=== PATIENT | male | born 1965 | race African-American/Black ===

== ENCOUNTER 2017-10-05 18:31 | Inpatient (IN) | payer OTHER ==
[~2017-10-05] VITALS: Ht 177.8 cm; Wt 84.9 kg
[2017-10-05 19:07] VITALS: Ht 177.8 cm; Wt 84.9 kg
[2017-10-05 19:19] LABS: BASOPHIL % 0.4 % (0-2)
[2017-10-05 19:26] LABS: PLATELET COUNT 265 x10^3mcL (130-400)
[2017-10-05 19:34] LABS: RED CELL DISTRIBUTION WIDTH 15.1 % (11.5-14.5)
[2017-10-05 19:45] LABS: ALBUMIN 3.6 g/dL (3.4-5.0); BILIRUBIN TOTAL 0.7 mg/dL (0.20-1.00); CALCIUM 8.9 mg/dL (8.5-10.1); CARBON DIOXIDE 26.1 mmol/L (21-32)
[2017-10-05 19:52] LABS: CREATININE SERUM 5.9 mg/dL (0.7-1.3)
[2017-10-05] MEDS ORDERED: METFORMIN HYDR500 M1 PO (21:03)
[2017-10-05] MEDS ORDERED: COLACE100 MG PO (21:04)
[2017-10-05] MEDS ORDERED: DOXYCYCLINE HY100 MG PO (21:04)
[2017-10-05] MEDS ORDERED: ZESTRIL20 MG PO (21:04)
[2017-10-05] MEDS ORDERED: LANTUS SOLOS100 U/M1 SQ (21:05)
[2017-10-05] MEDS ORDERED: PRO30 PO (21:05)
[2017-10-05 21:44] LABS: CHOLESTEROL/HDL RATIO 4.2; MAGNESIUM 2.6 mg/dL (1.8-2.4); PHOSPHOROUS 6.5 mg/dL (2.5-4.9); T3 TOTAL 0.97 ng/mL
[2017-10-05 22:27] VITALS: BP 104/72
[2017-10-05 23:24] LABS: FREE T4 1.31 ng/dL (0.76-1.46); FREE THYROXINE INDEX 3.2 ug/dL (1.4-4.5); T4(THYROXINE) 8.6 ug/dL (4.7-13.3)
[2017-10-06 04:49] VITALS: BP 135/72
[2017-10-06 07:28] LABS: CALCIUM 8.3 mg/dL (8.5-10.1); CARBON DIOXIDE 26.1 mmol/L (21-32); CREATININE SERUM 3.5 mg/dL (0.7-1.3); MAGNESIUM 2.3 mg/dL (1.8-2.4); PHOSPHOROUS 3.6 mg/dL (2.5-4.9); POTASSIUM SERUM 4.2 mmol/L (3.5-5.1)
[2017-10-06 08:00] VITALS: BP 126/70
[2017-10-06 08:23] LABS: UA SPECIFIC GRAVITY >=1.030 (1.005-1.035); microscopic required? YES; urine erythrocyte NEGATIVE (NEGATIVE)
[2017-10-06 08:39] LABS: BASOPHIL % 0.3 % (0-2); PLATELET COUNT 246 x10^3mcL (130-400)
[2017-10-06 08:40] LABS: AMPHETAMINE QUAL UR POSITIVE (See below)
[2017-10-06 08:40] LABS: RED CELL DISTRIBUTION WIDTH 14.6 % (11.5-14.5)
[2017-10-06 08:49] VITALS: BP 129/78
[2017-10-06 13:52] VITALS: BP 111/70
[2017-10-06 16:51] VITALS: BP 105/56
[2017-10-06 20:51] VITALS: BP 118/73
[2017-10-07 05:38] VITALS: BP 138/81
[2017-10-07 06:25] LABS: BASOPHIL % 0.4 % (0-2); PLATELET COUNT 240 x10^3mcL (130-400)
[2017-10-07 06:26] LABS: RED CELL DISTRIBUTION WIDTH 14.6 % (11.5-14.5)
[2017-10-07 06:39] LABS: CALCIUM 8.3 mg/dL (8.5-10.1); CARBON DIOXIDE 25.8 mmol/L (21-32); CREATININE SERUM 1.5 mg/dL (0.7-1.3); PHOSPHOROUS 2.5 mg/dL (2.5-4.9); POTASSIUM SERUM 4.4 mmol/L (3.5-5.1)
[2017-10-07 09:17] VITALS: BP 118/64
[2017-10-07 13:55] VITALS: BP 128/81
[2017-10-07 17:10] VITALS: BP 120/72
[2017-10-07 17:16] VITALS: BP 120/72
[2017-10-07 20:31] VITALS: BP 137/83
[2017-10-08 05:15] VITALS: BP 144/78
[2017-10-08 06:52] LABS: BASOPHIL % 0.5 % (0-2); PLATELET COUNT 230 x10^3mcL (130-400); RED CELL DISTRIBUTION WIDTH 14.4 % (11.5-14.5)
[2017-10-08 07:08] LABS: CALCIUM 8.5 mg/dL (8.5-10.1); CARBON DIOXIDE 25.8 mmol/L (21-32); CHLORIDE SERUM 105 mmol/L (98-107); CREATININE SERUM 1.1 mg/dL (0.7-1.3); GFR1 > 60 mL/min; GLUCOSE SERUM 145 mg/dL (74-106); MAGNESIUM 1.5 mg/dL (1.8-2.4); PHOSPHOROUS 2.7 mg/dL (2.5-4.9); POTASSIUM SERUM 4.1 mmol/L (3.5-5.1); SODIUM SERUM 137 mmol/L (136-145)
[2017-10-08 10:15] VITALS: BP 125/71
[2017-10-08 11:41] VITALS: BP 125/71
[2017-10-08 13:23] VITALS: BP 122/75
[2017-10-08 18:15] VITALS: BP 131/77
== END 2017-10-08 20:15 | disposition home or self-care (01) | DRG 241 ==
LOC: ED 18:31 → MU 20:19 → DU 20:19 → MU 22:26 → DU 22:31
PROVIDERS: Emergency Medicine; Internal Medicine; Internal Medicine Gastroenterology
PROC: 0DB68ZX Excision of Stomach, Via Natural or Artificial Opening Endoscopic, Diagnostic (ICD-10-PCS; principal; 2017-10-08 09:30)
DX: K29.71 Gastritis, unspecified, with bleeding (principal); N17.0 Acute kidney failure with tubular necrosis; E11.65 Type 2 diabetes mellitus with hyperglycemia; E83.39 Other disorders of phosphorus metabolism; E83.41 Hypermagnesemia; F15.10 Other stimulant abuse, uncomplicated; Z60.2 Problems related to living alone; E86.0 Dehydration; E87.1 Hypo-osmolality and hyponatremia; E78.5 Hyperlipidemia, unspecified; F17.210 Nicotine dependence, cigarettes, uncomplicated; Z89.422 Acquired absence of other left toe(s); Z79.84 Long term (current) use of oral hypoglycemic drugs; Z83.3 Family history of diabetes mellitus; Z71.51 Drug abuse counseling and surveillance of drug abuser
CPT/HCPCS: 43235; 82962; 84439; C9113; G0480; J1200; J1610; J1815; J2250; J2310; J2405; J2765; J3010; J3490; J7030; Q0092

== ENCOUNTER 2020-03-22 20:07 | Emergency (ER) | payer OTHER, SELFPAY ==
[~2020-03-22] VITALS: Ht 177.8 cm; Wt 81.6 kg
[~2020-03-22 20:07] MED LIST: COLACE100 MG PO; DOXYCYCLINE HY100 MG PO; LANTUS SOLOS100 U/M1 SQ; METFORMIN HYDR500 M1 PO; PRO30 PO; ZESTRIL20 MG PO
[2020-03-22 20:38] VITALS: Ht 177.8 cm; Wt 81.6 kg
[2020-03-22 21:46] VITALS: BP 142/76
== END 2020-03-22 21:46 | disposition home or self-care (01) ==
LOC: ED 20:07
DX: R11.0 Nausea (principal); H92.03 Otalgia, bilateral; R09.81 Nasal congestion; I10 Essential (primary) hypertension; E11.9 Type 2 diabetes mellitus without complications; Z88.1 Allergy status to other antibiotic agents